=== PATIENT | female | born 1955 | race American Indian/Alaskan Native ===

== ENCOUNTER 2016-10-29 11:21 | Emergency (ER) | payer MEDICAID ==
[2016-10-29 11:39] VITALS: BP 108/67
[2016-10-29] MEDS ORDERED: DELTASONE PO ONE (13:17)
[2016-10-29] MEDS ORDERED: PERCOCET 5/325 PO ONE (13:17)
--- NOTE | 2016-10-29 14:54 | XRay Report ---
FINAL REPORT EXAM: XR HIP 2-3V RT HISTORY: Fall with right hip pain TECHNIQUE: AP pelvis radiograph. Frog-leg radiograph of the right hip. PRIORS: None. FINDINGS: No fracture. No dislocation. Normal mineralization. No soft tissue abnormality. Mild degenerative changes of the hip joints are seen. IMPRESSION: No acute pelvis or right hip abnormality.
--- NOTE | 2016-10-29 15:07 | XRay Report ---
FINAL REPORT EXAM: XR SPINE LUMBOSACRAL 2-3V HISTORY: fall with back pain and radiculopathy TECHNIQUE: AP, lateral and lumbosacral spot views of the lumbar spine. PRIORS: None. FINDINGS: There are five lumbar type vertebral bodies. Normal alignment. No compression fracture. The disc spaces are maintained. Mild anterior osteophyte formations are seen within the lumbar spine. Mild facet arthropathy is seen in the lumbar spine. The paravertebral soft tissues are normal. An ovoid calcification projects in the left paraspinous region at the L3-4 level which may represent a vascular calcification versus nonspecific psoas muscle calcification. IMPRESSION: 1. No acute lumbar spine abnormality. 2. Mild degenerative spondylosis and facet arthropathy of the lumbar spine.
[2016-10-29] MEDS ORDERED: PERCOCET 5/325 ONE (15:32)
--- NOTE | 2016-10-29 15:52 | Emergency Department Report ---
Entered by TATIANA GRAHAM, acting as scribe for BRETT SPRING PA. ED Back Pain/Injury HPI - General Chief Complaint: Back Pain/Injury Stated Complaint: R/SIDE/HIP/BACK/LEG PAIN/FALL Time Seen by Provider: 10/29/16 11:52 Source: patient, family Mode of arrival: Ambulatory Limitations: Physical Limitation (patient ambulatory with a cane) - History of Present Illness Initial Comments: 61 y/o female with a PMHx asthma, GERD, COPD, NC, HTN, high cholesterol, and chronic back/hip pain presents to the ED c/o low back pain that began 2 weeks ago. Patient states she fell 2 weeks ago on her right side of body. Notes the low back pain radiates to her right leg. Rates pain a 10/10 in severity, which she describes as aching in quality. Associated symptom include right hip pain, but she denies abdominal pain, nausea, vomiting, numbness, tingling, urgency, frequency, dysuria, and incontinence. Notes Hx of similar symptoms in the past, but states this episode is worse. Took Ibuprofen with no relief. She is ambulatory with using a cane. Patient is currently on 2L O2 and reports daily tobacco use. NKDA. MADRIGAL Complaint: back pain (low back pain), fall (2 weeks ago) Onset/Timin -: week(s) Similar Symptoms Previously: Yes (Hx chronic back/hip pain) Place: home Radiation: right leg Severity: severe Severity scale (0 -10): 10 Quality: aching Consistency: constant Improves With: immobilization Worsens With: movement, walking Context: fall (patient fell on right side 2 weeks ago) Associated Symptoms: denies other symptoms, difficulty walking (due to chronic back and hip pain. She walks with a cane). denies: confusion, weakness, chest pain, numbness, difficulty urinating, incontinence, fever/chills, constipation, headaches, abdominal pain, loss of appetite, malaise, nausea/vomiting, rash, seizure, shortness of breath, syncope, other (tingling, but reports right hip pain) Treatments Prior to Arrival: NSAIDS (Ibuprofen) - Related Data Home Medications Medication Instructions Recorded Confirmed Last Taken Albuterol Sulfate [Albuterol 0.63% 0.63 inhalation INHALATION Q4-6H 08/26/1310/2402/14/15 NEBS] Simvastatin 20 mg PO DAILY 08/26/13 02/14/15 02/14/15 Fluticasone [Flonase] 1 spray NS QDAY 09/22/14 02/14/15 02/14/15 Ibuprofen [Motrin 800 MG tab] 800 mg PO Q6H 09/22/14 02/14/15 02/14/15 Lisinopril/Hydrochlorothiazide 1 tab PO QDAY 09/22/14 02/14/15 02/14/15 [Zestoretic 10-12.5 mg] Previous Rx's Medication Instructions Recorded Last Taken Type ALBUTEROL Inhaler [ProAir HFA 2 puff IH QID PRN #1 inhalation 02/18/15 Unknown Rx Inhaler] Albuterol *Only Ed* [Proventil 2.5 mg IH Q4HRT PRN #1 box 02/18/15 Unknown Rx 0.5% NEBS] Amoxicillin/K Clav Tab [Augmentin 1 tab PO Q12HR #10 tab 02/18/15 Unknown Rx 875MG TAB] HYDROcodone/APAP 5-325 [Lincoln 1 each PO Q6H PRN #20 tablet 02/18/15 Unknown Rx 5-325 mg TAB] Ipratropium/Albuterol Sulfate 1 ampul IH TIDRT PRN #1 box 02/18/15 Unknown Rx [Duoneb 0.5 mg-3 mg/3 ml Soln] predniSONE [Deltasone] 50 mg PO QDAY #7 tab 02/18/15 Unknown Rx Acetaminophen/Codeine [Tylenol #3] 1 tab PO Q6H PRN #20 tab 05/21/15 Unknown Rx Cyclobenzaprine [Flexeril] 10 mg PO TID PRN #20 tablet 05/21/15 Unknown Rx HYDROcodone/APAP 5-325 [Lincoln 1 each PO Q6HR PRN #16 tablet 02/02/16 Unknown Rx 5/325] methOCARBAMOL [Robaxin TAB] 500 mg PO DAILY PRN #12 tablet 10/29/16 Unknown Rx traMADol [Ultram] 50 mg PO Q6HR PRN #20 tablet 10/29/16 Unknown Rx Allergies Allergy/AdvReac Type Severity Reaction Status Date / Time No Known Allergies Allergy Verified 10/29/16 11:36 ED Review of Systems Comment: All other systems reviewed and negative Constitutional: no symptoms reported. denies: chills, fever, weakness, other ( tingling) Respiratory: no symptoms reported Cardiovascular: denies: chest pain, palpitations, edema, syncope Endocrine: no symptoms reported Gastrointestinal: denies: abdominal pain, nausea, vomiting Genitourinary: denies: urgency, dysuria, frequency, other (incontinence) Musculoskeletal: back pain (low back pain that radiates to right leg), arthralgia. denies: joint swelling Skin: denies: rash Neurological: abnormal gait (chronic). denies: headache, weakness, numbness, paresthesias, confusion, vertigo ED Past Medical Hx - Past Medical History Previous Medical History?: Yes Hx Hypertension: Yes Hx CVA: No Hx Heart Attack/AMI: Yes Hx Congestive Heart Failure: No Hx Diabetes: No Hx Deep Vein Thrombosis: No Hx Pulmonary Embolism: No Hx GERD: Yes Hx Liver Disease: No Hx Renal Disease: No Hx Sickle Cell Disease: No Hx Arthritis: No Hx Headaches / Migraines: No Hx Seizures: No Hx Kidney Stones: No Hx Psychiatric Treatment: No Hx Asthma: Yes Hx COPD: Yes (2LNC @ home.) Hx Tuberculosis: No Hx HIV: No Additional medical history: High cholestrol. Chronic back pain/hip pain. - Surgical History Past Surgical History?: Yes Hx Coronary Stent: No Hx Pacemaker: No Hx Internal Defibrillator: No Additional Surgical History: hysterectomy. LEFT ANKLE - Family History Family history: CAD/NC, diabetes, hypertension - Social History Smoking Status: Current Every Day Smoker Substance Use Type: Alcohol - Medications Home Medications: Home Medications Medication Instructions Recorded Confirmed Last Taken Type Albuterol Sulfate [Albuterol 0.63% 0.63 inhalation INHALATION Q4-6H 08/26/1310/2402/14/15 History NEBS] Simvastatin 20 mg PO DAILY 08/26/13 02/14/15 02/14/15 History Fluticasone [Flonase] 1 spray NS QDAY 09/22/14 02/14/15 02/14/15 History Ibuprofen [Motrin 800 MG tab] 800 mg PO Q6H 09/22/14 02/14/15 02/14/15 History Lisinopril/Hydrochlorothiazide 1 tab PO QDAY 09/22/14 02/14/15 02/14/15 History [Zestoretic 10-12.5 mg] ALBUTEROL Inhaler [ProAir HFA 2 puff IH QID PRN #1 inhalation 02/18/15 Unknown Rx Inhaler] Albuterol *Only Ed* [Proventil 2.5 mg IH Q4HRT PRN #1 box 02/18/15 Unknown Rx 0.5% NEBS] Amoxicillin/K Clav Tab [Augmentin 1 tab PO Q12HR #10 tab 02/18/15 Unknown Rx 875MG TAB] HYDROcodone/APAP 5-325 [[place]incoln 1 each PO Q6H PRN #20 tablet 02/18/15 Unknown Rx 5-325 mg TAB] Ipratropium/Albuterol Sulfate 1 ampul IH TIDRT PRN #1 box 02/18/15 Unknown Rx [Duoneb 0.5 mg-3 mg/3 ml Soln] predniSONE [Deltasone] 50 mg PO QDAY #7 tab 02/18/15 Unknown Rx Acetaminophen/Codeine [Tylenol #3] 1 tab PO Q6H PRN #20 tab 05/21/15 Unknown Rx Cyclobenzaprine [Flexeril] 10 mg PO TID PRN #20 tablet 05/21/15 Unknown Rx HYDROcodone/APAP 5-325 [Lincoln 1 each PO Q6HR PRN #16 tablet 02/02/16 Unknown Rx 5/325] methOCARBAMOL [Robaxin TAB] 500 mg PO DAILY PRN #12 tablet 10/29/16 Unknown Rx traMADol [Ultram] 50 mg PO Q6HR PRN #20 tablet 10/29/16 Unknown Rx ED Physical Exam - General Limitations: No Limitations General appearance: alert, in no apparent distress - Head Head exam: Present: atraumatic, normocephalic, normal inspection - Eye Eye exam: Present: normal appearance, PERRL, EOMI Pupils: Present: normal accommodation - ENT ENT exam: Present: normal exam, normal orophraynx, mucous membranes moist, normal external ear exam - Neck Neck exam: Present: normal inspection, full ROM. Absent: tenderness, meningismus, lymphadenopathy - Respiratory Respiratory exam: Present: decreased breath sounds (diminished lung sounds throughout), other (patient is on 2L O2). Absent: normal lung sounds bilaterally (diminished lung sounds throughout is present), respiratory distress , wheezes, rales, rhonchi, stridor, chest wall tenderness, accessory muscle use , prolonged expiratory - Cardiovascular Cardiovascular Exam: Present: regular rate, normal rhythm, normal heart sounds - GI/Abdominal GI/Abdominal exam: Present: soft, normal bowel sounds. Absent: distended, tenderness, guarding, rebound, rigid - Extremities Exam Extremities exam: Present: normal inspection, normal capillary refill, other ( left hip normal range of motion.). Absent: full ROM (patient with full range of motion to extremities but painful to move right lower extremity at hip. Reports pain with abduction and adduction to right hip.), tenderness, pedal edema, joint swelling - Expanded Lower Extremity Exam Right Hip exam: Present: normal inspection, pelvic stability. Absent: full ROM ( patient Pt with full range of motion to extremities but painful to move right lower extremity at hip. Reports pain with abduction and adduction to right hip. ), tenderness, swelling, abrasion, laceration, ecchymosis, deformity, crepidus, dislocation, erythema, external rotation, internal rotation, shortening Upper Leg exam: Present: normal inspection, full ROM. Absent: tenderness, swelling, abrasion, laceration, ecchymosis, deformity, crepidus, dislocation, erythema Knee exam: Present: normal inspection, full ROM, full knee extension. Absent: tenderness, swelling, abrasion, laceration, ecchymosis, deformity, crepidus, dislocation, erythema, effusion, pain w/ pronation/supination, posterior draw sign Lower Leg exam: Present: normal inspection, full ROM. Absent: tenderness, swelling, abrasion, laceration, ecchymosis, deformity, crepidus, dislocation, erythema, palpable cord, Aracelis's sign Ankle exam: Present: normal inspection, full ROM. Absent: tenderness, swelling , abrasion, laceration, ecchymosis, deformity, crepidus, dislocation, erythema Foot/Toe exam: Present: normal inspection, full ROM. Absent: tenderness, swelling, abrasion, laceration, ecchymosis, deformity, crepidus, dislocation, erythema, amputation, puncture wound, foreign body, calcaneal tenderness, tenderness at base of 5th metatarsal, nail avulsion, subungual hematoma Neuro vascular tendon exam: Present: no vascular compromise, motor deficit ( patient with diminished range of motion to right lower extremity due to arthritis and she uses a cane.). Absent: pulse deficit, abnormal cap refill, sensory deficit, tendon deficit, extremity cold to touch, pallor, abnormal 2- point discrimination, decreased fine/light touch, foot drop, peroneal nerve deficit, significant pain with passive ROM of distal joint Gait: Positive: observed and limited by pain - Back Exam Back exam: Present: full ROM, tenderness (right lumbar tenderness). Absent: vertebral tenderness - Expanded Back Exam Expanded Back exam: Positive Straight Leg Raise: Right, Negative Straight Leg Raising: Left - Neurological Exam Neurological exam: Present: alert, oriented X3, abnormal gait (abnormal gait due to chronic back and hip pain. She came), motor sensory deficit (no sensory deficit but she has decreased movement to her right lower extremity and this is chronic), reflexes normal, other (chronic unsteady gait, patient is ambulatory with a cane) - Expanded Neurological Exam Expanded Neurological exam: Absent: innattentive, memory loss-remote event, memory loss- recent event, ataxia, receptive aphasia, expressive aphasia, total aphasia, tremor, protecting the airway Patient oriented to: Present: person, place, time Speech: Present: fluid speech Cranial nerves: EOM's Intact: Normal, Gag Reflex: Normal, Tongue Deviation: Normal, Nystagmus: Normal, Facial Sensation: Normal Cerebellar function: Romberg: Normal Upper motor neuron: Pronator Drift: Normal, Sensory Extinction: Normal Sensory exam: Upper Extremity Light Touch: Normal, Upper Extremity Temperature: Normal, UE 2 Point Discrimination: Normal, Lower Extremity Light Touch: Normal, Lower Extremity Temperature: Normal, LE 2 Point Discrimination: Normal Motor strength exam: RUE: 5, LUE: 5, RLE: 4, LLE: 5 DTR: bicep (R): 2+, bicep (L): 2+, tricep (R): 2+, tricep (L): 2+, knee (R): 2+ , knee (L): 2+, ankle (R): 2+, ankle (L): 2+ Best Eye Response (Boyd): (4) open spontaneously Best Motor Response (Boyd): (6) obeys commands Best Verbal Response (Miguel): (5) oriented Miguel Total: 15 - Psychiatric Psychiatric exam: Present: normal affect, normal mood - Skin Skin exam: Present: warm, dry, intact, normal color. Absent: rash ED Course Vital Signs 10/29/16 11:36 Temperature 98.5 F Pulse Rate 66 Respiratory 22 Rate Blood Pressure 108/67 O2 Sat by Pulse 97 Oximetry - Reevaluation(s) Reevaluation #1: 10/29/16 15:40 given Deltasone 60 mg and Percocet 5/325 2 tablets emergency room ED Medical Decision Making - Radiology Data Radiology results: report reviewed - Medical Decision Making ED course: Patient status post fall 2 weeks ago with complaints of back pain on the right side of her lower back radiating down to her right hip. Patient with chronic back pain and chronic hip pain. She ambulates with a cane. I discussed with patient that her x-ray of her right hip and lumbar spine did not show any acute findings for fracture or dislocation. I Discussed with her that she has degenerative changes which is arthritis arthritis. She was given Percocet 5/325 2 tablets emergency room along with . Deltasone 60 mg by mouth. She does have a primary care physician and she had seen orthopedic doctor in the past so I told her to follow up with orthopedic doctor and if she does not have one at present Iwill refer her to orthopedic doctor. Patient was understanding of discharge instruction and discharged home with prescription for Ultram and Robaxin ED Disposition Clinical Impression: Acute exacerbation of chronic low back pain, Arthralgia of right hip, Fall from ground level, DDD (degenerative disc disease), lumbosacral Disposition: DISCHARGED TO HOME OR SELFCARE Is pt being admited?: No Does the pt Need Aspirin: No Condition: Stable Instructions: Arthralgia (ED), Chronic Back Pain (ED), Fall Prevention for Older Adults (ED) Additional Instructions: Please rest for 72 hours Follow up with orthopedic doctor and her primary care physician as discussed Prescriptions: methOCARBAMOL [Robaxin TAB] 500 mg PO DAILY PRN #12 tablet PRN Reason: Pain traMADol [Ultram] 50 mg PO Q6HR PRN #20 tablet PRN Reason: Pain Referrals: Dr Hackett, ORTHOPEDIC DOCTOR [Other] - 2-3 Days (Office is open Monday to Monday 8:30 AM to 5 PM) PRIMARY CARE, [Primary Care Provider] - 2-3 Days Forms: Work/School Release Form(ED) This documentation as recorded by the scribe,SANTOS,TATIANA,accurately reflects the service I personally performed and the decisions made by me,BRETT SPRING PA.
== END 2016-10-29 16:00 | disposition home or self-care (01) ==
LOC: ED 11:21
DX: M51.37 Other intervertebral disc degeneration, lumbosacral region (principal); I10 Essential (primary) hypertension; I25.2 Old myocardial infarction; K21.9 Gastro-esophageal reflux disease without esophagitis; J45.909 Unspecified asthma, uncomplicated; J44.9 Chronic obstructive pulmonary disease, unspecified; F17.200 Nicotine dependence, unspecified, uncomplicated; W18.30XA Fall on same level, unspecified, initial encounter; Y93.9 Activity, unspecified; Y92.9 Unspecified place or not applicable; Y99.9 Unspecified external cause status
CPT/HCPCS: 72100; 73502; 99283; J7512

== ENCOUNTER 2017-03-28 12:22 | Emergency (ER) | payer MEDICAID ==
--- NOTE | 2017-03-28 15:08 | Emergency Department Report ---
ED Upper Extremity Inj HPI - General Chief Complaint: Extremity Injury, Upper Stated Complaint: ARM PAIN Time Seen by Provider: 03/28/17 14:54 Source: patient Mode of arrival: Ambulatory Limitations: No Limitations - History of Present Illness Initial Comments: This is a 61-year-old female nontoxic, well nourished in appearance, no acute signs of distress presents to the ED complaining of upper back pain, right shoulder pain radiates towards right upper extremity 3 weeks. Patient denies any trauma to the region. She was followed up with her pain management doctor received Percocet with minimal to no relief. Patient was instructed to follow- up with a primary care doctor to obtain an x-ray but she stated she directed to time restraint. She denies any trauma to the region, numbness, tingling, fever , chills, joint swelling, joint redness, stiff neck, headache, chest pain, shortness of breath, nausea vomiting. Patient denies any allergies. Past medical history includes asthma, COPD, [place], hypertension. MD Complaint: Injury to:: right, shoulder, arm -: Gradual, week(s) (3) Other Extremity Injury: Shoulder: Right Other Injuries: none Severity scale (0 -10): 7 Improves With: none Worsens With: none Associated Symptoms: denies other symptoms. denies: weakness, numbness, neck pain, suspects foreign body, nausea/vomiting, heard/felt popping sensat - Related Data Home Medications Medication Instructions Recorded Confirmed Last Taken Albuterol Sulfate [Albuterol 0.63% 0.63 inhalation INHALATION Q4-6H 08/26/1310/2402/14/15 NEBS] Simvastatin 20 mg PO DAILY 08/26/13 02/14/15 02/14/15 Fluticasone [Flonase] 1 spray NS QDAY 09/22/14 02/14/15 02/14/15 Ibuprofen [Motrin 800 MG tab] 800 mg PO Q6H 09/22/14 02/14/15 02/14/15 Lisinopril/Hydrochlorothiazide 1 tab PO QDAY 09/22/14 02/14/15 02/14/15 [Zestoretic 10-12.5 mg] Previous Rx's Medication Instructions Recorded Last Taken Type ALBUTEROL Inhaler [ProAir HFA 2 puff IH QID PRN #1 inhalation 02/18/15 Unknown Rx Inhaler] Albuterol *Only Ed* [Proventil 2.5 mg IH Q4HRT PRN #1 box 02/18/15 Unknown Rx 0.5% NEBS] Amoxicillin/K Clav Tab [Augmentin 1 tab PO Q12HR #10 tab 02/18/15 Unknown Rx 875MG TAB] HYDROcodone/APAP 5-325 [[place] 1 each PO Q6H PRN #20 tablet 02/18/15 Unknown Rx 5-325 mg TAB] Ipratropium/Albuterol Sulfate 1 ampul IH TIDRT PRN #1 box 02/18/15 Unknown Rx [DUONEB *Not for PRN Use*] predniSONE [Deltasone] 50 mg PO QDAY #7 tab 02/18/15 Unknown Rx Acetaminophen/Codeine [Tylenol #3] 1 tab PO Q6H PRN #20 tab 05/21/15 Unknown Rx Cyclobenzaprine [Flexeril] 10 mg PO TID PRN #20 tablet 05/21/15 Unknown Rx HYDROcodone/APAP 5-325 [[place] 1 each PO Q6HR PRN #16 tablet 02/02/16 Unknown Rx 5/325] methOCARBAMOL [Robaxin TAB] 500 mg PO DAILY PRN #12 tablet 10/29/16 Unknown Rx traMADol [Ultram] 50 mg PO Q6HR PRN #20 tablet 10/29/16 Unknown Rx Cyclobenzaprine HCl [Flexeril 5 MG 5 mg PO BID #10 tab 03/28/17 Unknown Rx TAB] Allergies Allergy/AdvReac Type Severity Reaction Status Date / Time No Known Allergies Allergy Verified 03/28/17 12:26 ED Review of Systems ROS: Stated complaint: ARM PAIN Other details as noted in HPI Constitutional: denies: chills, fever Eyes: denies: eye pain, eye discharge, vision change ENT: denies: ear pain, throat pain Respiratory: denies: cough, shortness of breath, wheezing Cardiovascular: denies: chest pain, palpitations Endocrine: no symptoms reported Gastrointestinal: denies: abdominal pain, nausea, diarrhea Genitourinary: denies: urgency, dysuria, discharge Musculoskeletal: denies: back pain, joint swelling, arthralgia Skin: denies: rash, lesions Neurological: denies: headache, weakness, paresthesias Psychiatric: denies: anxiety, depression Hematological/Lymphatic: denies: easy bleeding, easy bruising ED Past Medical Hx - Past Medical History Hx Hypertension: Yes Hx CVA: No Hx Heart Attack/AMI: Yes Hx Congestive Heart Failure: No Hx Diabetes: No Hx Deep Vein Thrombosis: No Hx Pulmonary Embolism: No Hx GERD: Yes Hx Liver Disease: No Hx Renal Disease: No Hx Sickle Cell Disease: No Hx Arthritis: No Hx Headaches / Migraines: No Hx Seizures: No Hx Kidney Stones: No Hx Psychiatric Treatment: No Hx Asthma: Yes Hx COPD: Yes (2LNC @ home.) Hx Tuberculosis: No Hx HIV: No Additional medical history: High cholestrol. Chronic back pain/hip pain. - Surgical History Hx Coronary Stent: No Hx Pacemaker: No Hx Internal Defibrillator: No Additional Surgical History: hysterectomy. LEFT ANKLE - Social History Smoking Status: Current Some Day Smoker Substance Use Type: None, Alcohol - Medications Home Medications: Home Medications Medication Instructions Recorded Confirmed Last Taken Type Albuterol Sulfate [Albuterol 0.63% 0.63 inhalation INHALATION Q4-6H 08/26/1310/2402/14/15 History NEBS] Simvastatin 20 mg PO DAILY 08/26/13 02/14/15 02/14/15 History Fluticasone [Flonase] 1 spray NS QDAY 09/22/14 02/14/15 02/14/15 History Ibuprofen [Motrin 800 MG tab] 800 mg PO Q6H 09/22/14 02/14/15 02/14/15 History Lisinopril/Hydrochlorothiazide 1 tab PO QDAY 09/22/14 02/14/15 02/14/15 History [Zestoretic 10-12.5 mg] ALBUTEROL Inhaler [ProAir HFA 2 puff IH QID PRN #1 inhalation 02/18/15 Unknown Rx Inhaler] Albuterol *Only Ed* [Proventil 2.5 mg IH Q4HRT PRN #1 box 02/18/15 Unknown Rx 0.5% NEBS] Amoxicillin/K Clav Tab [Augmentin 1 tab PO Q12HR #10 tab 02/18/15 Unknown Rx 875MG TAB] HYDROcodone/APAP 5-325 [[place] 1 each PO Q6H PRN #20 tablet 02/18/15 Unknown Rx 5-325 mg TAB] Ipratropium/Albuterol Sulfate 1 ampul IH TIDRT PRN #1 box 02/18/15 Unknown Rx [DUONEB *Not for PRN Use*] predniSONE [Deltasone] 50 mg PO QDAY #7 tab 02/18/15 Unknown Rx Acetaminophen/Codeine [Tylenol #3] 1 tab PO Q6H PRN #20 tab 05/21/15 Unknown Rx Cyclobenzaprine [Flexeril] 10 mg PO TID PRN #20 tablet 05/21/15 Unknown Rx HYDROcodone/APAP 5-325 [[place] 1 each PO Q6HR PRN #16 tablet 02/02/16 Unknown Rx 5/325] methOCARBAMOL [Robaxin TAB] 500 mg PO DAILY PRN #12 tablet 10/29/16 Unknown Rx traMADol [Ultram] 50 mg PO Q6HR PRN #20 tablet 10/29/16 Unknown Rx Cyclobenzaprine HCl [Flexeril 5 MG 5 mg PO BID #10 tab 03/28/17 Unknown Rx TAB] ED Physical Exam - General Limitations: No Limitations General appearance: alert, in no apparent distress - Head Head exam: Present: atraumatic, normocephalic, normal inspection - Eye Eye exam: Present: normal appearance, PERRL, EOMI. Absent: scleral icterus, conjunctival injection, nystagmus, periorbital swelling, periorbital tenderness Pupils: Present: normal accommodation - ENT ENT exam: Present: normal exam, normal orophraynx, mucous membranes moist, TM's normal bilaterally, normal external ear exam - Neck Neck exam: Present: normal inspection, full ROM. Absent: tenderness, meningismus, lymphadenopathy, thyromegaly - Respiratory Respiratory exam: Present: normal lung sounds bilaterally. Absent: respiratory distress, wheezes, rales, rhonchi, stridor, chest wall tenderness, accessory muscle use, decreased breath sounds, prolonged expiratory - Cardiovascular Cardiovascular Exam: Present: regular rate, normal rhythm, normal heart sounds. Absent: irregular rhythm, systolic murmur, diastolic murmur, rubs, gallop - GI/Abdominal GI/Abdominal exam: Present: soft, normal bowel sounds. Absent: distended, tenderness, guarding, rebound, rigid, diminished bowel sounds - Rectal Rectal exam: Present: deferred - Extremities Exam Extremities exam: Present: normal inspection, full ROM, normal capillary refill. Absent: tenderness, pedal edema, joint swelling, calf tenderness - Expanded Upper Extremity Exam Right General: Present: normal inspection Shoulder Exam: Present: normal inspection, full ROM, tenderness (deltoid musclar region). Absent: swelling, abrasion, laceration, ecchymosis, deformity , crepidus, erythema, tenderness over AC joint Upper Arm exam: Present: normal inspection, full ROM. Absent: tenderness, swelling, abrasion, laceration, ecchymosis, deformity, crepidus, dislocation, erythema Elbow exam: Present: normal inspection, full ROM. Absent: tenderness, swelling , abrasion, laceration, ecchymosis, deformity, crepidus, dislocation, erythema, effusion, pain w/ pronation/supination, tenderness over radial head Forearm Wrist exam: Present: normal inspection, full ROM. Absent: tenderness, swelling, abrasion, laceration, ecchymosis, deformity, crepidus, dislocation, erythema, tenderness over anatomical snuff box, pain with axial thumb loading Hand Wrist exam: Present: normal inspection, full ROM. Absent: tenderness, swelling, abrasion, laceration, ecchymosis, deformity, crepidus, dislocation, erythema, amputation, nail avulsion, subungual hematoma Neuro motor exam: Present: wrist extension intact, thumb opposition intact, thumb IP flexion intact, thumb adduction intact, fingers 2-5 abduction intact Neurosensory exam: Present: 2-point discrimination, radial nerve intact, ulnar nerve intact, median nerve intact Vascular: Present: vascular compromise, normal capillary refill, radial pulse, brachial pulse, ulnar pulse - Back Exam Back exam: Present: normal inspection, full ROM, paraspinal tenderness (cerival region). Absent: tenderness, CVA tenderness (R), CVA tenderness (L), muscle spasm, vertebral tenderness, rash noted - Neurological Exam Neurological exam: Present: alert, oriented X3, CN II-XII intact, normal gait, reflexes normal - Psychiatric Psychiatric exam: Present: normal affect, normal mood - Skin Skin exam: Present: warm, dry, intact, normal color. Absent: rash ED Course Vital Signs 03/28/17 12:26 Temperature 98.6 F Pulse Rate 93 H Respiratory 20 Rate Blood Pressure 134/82 O2 Sat by Pulse 94 Oximetry - Reevaluation(s) Reevaluation #1: 03/28/17 15:10 Patient is speaking in full sentences with no signs of distress noted. ED Medical Decision Making - Medical Decision Making 61-year-old female that presents with cervical radiculopathy versus muscle strain versus rotator cuff injury. Patient was developed by me patient is stable. X-ray of cervical spine and right shoulder has been obtained and the radiologist with negative findings of any abnormalities. Patient notified her x -ray results with no further question about the patient. Patient received Toradol 30 mg IM in the ED which patient stated his symptoms have subsided. There is no joint swelling, cellulitis, or joint redness. Patient received a shoulder immobilizer. Neurovascular intact. Patient was followed by Dr. Hackett or another orthopedic doctor in 3-5 days or if symptoms worsen to continue return to emergency room as soon as possible. Patient is hemodynamically stable with stable vital signs. Patient states she is feeling better. At time time of discharge, the patient does not seem toxic or ill in appearance. No acute signs of distress noted. Patient agrees to discharge treatment plan of care. No further questions noted by the patient. Critical care attestation.: If time is entered above; I have spent that time in minutes in the direct care of this critically ill patient, excluding procedure time. ED Disposition Clinical Impression: Cervical radiculopathy Right shoulder pain Qualifiers: Chronicity: unspecified Qualified Code(s): M25.511 - Pain in right shoulder Disposition: DC-01 TO HOME OR SELFCARE Is pt being admited?: No Does the pt Need Aspirin: No Condition: Stable Instructions: Cyclobenzaprine (By mouth), Rotator Cuff Injury (ED), Shoulder Sprain (ED) Additional Instructions: Follow-up with Dr. Hackett or another orthopedic doctor in 3-5 days for possible MRI of the region or if symptoms worsen or continue return to emergency room as soon as possible. Take Flexeril as prescribed. Do not operate heavy machinery while taking Flexeril due to sedation Prescriptions: Cyclobenzaprine HCl [Flexeril 5 MG TAB] 5 mg PO BID #10 tab Referrals: CHELSEA RHODES [Other] - 3-5 Days BETINA HACKETT MD [Staff Physician] - 3-5 Days [facility] [Outside] - 3-[address] [facility] [Outside] - 3-5 Days
[2017-03-28] MEDS: TORADOL IM ONE (15:45)
--- NOTE | 2017-03-28 15:47 | XRay Report ---
RIGHT SHOULDER: History: Shoulder pain. Routine views demonstrate normal bony and soft tissue structures with normal joint alignment of the shoulder. IMPRESSION: Normal study.
--- NOTE | 2017-03-28 15:50 | XRay Report ---
AP lateral of the cervical spine. History: Cervical tenderness after trauma. Findings: There is no evidence of fracture or subluxation. The vertebral body heights are well-maintained. Alignment is normal. Facet joints appear normal. The odontoid is intact. Impression: No significant findings.
[2017-03-28 16:45] VITALS: BP 134/80
== END 2017-03-28 16:43 | disposition home or self-care (01) ==
LOC: ED 12:22
DX: M25.511 Pain in right shoulder (principal); M54.12 Radiculopathy, cervical region; I10 Essential (primary) hypertension; I25.2 Old myocardial infarction; K21.9 Gastro-esophageal reflux disease without esophagitis; J45.909 Unspecified asthma, uncomplicated; J44.9 Chronic obstructive pulmonary disease, unspecified; E78.5 Hyperlipidemia, unspecified; G89.29 Other chronic pain; F17.200 Nicotine dependence, unspecified, uncomplicated; Z98.890 Other specified postprocedural states
CPT/HCPCS: 29105; 72040; 73030; 96372; 99283; J1885

== ENCOUNTER 2018-01-16 18:39 | Emergency (ER) | payer MEDICAID ==
[2018-01-16 19:03] VITALS: BP 157/78
[2018-01-16 19:32] LABS: Basophils # (Auto) 0.1 K/mm3 (0.0-0.1); Basophils % (Auto) 0.8 % (0.0-1.8); Eosinophils # (Auto) 0.2 K/mm3 (0.0-0.4); Lymphocytes # (Auto) 2.3 K/mm3 (1.2-5.4); Lymphocytes % (Auto) 22.1 % (13.4-35.0); Mean Corpuscular HGB Conc 33 % (30-34); Mean Corpuscular Hemoglobin 27 pg (28-32); Mean Corpuscular Volume 80 fl (79-97); Monocytes # (Auto) 0.6 K/mm3 (0.0-0.8); Monocytes % (Auto) 5.6 % (0.0-7.3); Platelet Count 290 K/mm3 (140-440); Red Blood Count 4.48 M/mm3 (3.65-5.03); Red Cell Distribution Width 16.4 % (13.2-15.2)
[2018-01-16 19:42] LABS: INR 0.87 (0.87-1.13); Partial Thromboplastin Time 24.7 Sec. (24.2-36.6)
[2018-01-16 19:43] LABS: BUN/Creatinine Ratio 28; Blood Urea Nitrogen 17 mg/dL (7-17); Calcium 9.6 mg/dL (8.4-10.2); Hemolysis Index 7
--- NOTE | 2018-01-16 20:04 | Cat Scan Report ---
FINAL REPORT EXAM: CT HEAD/BRAIN WO CON HISTORY: head injury, unknown LOC TECHNIQUE: 2.5 millimeter axial images from the skullbase to the vertex. Comparison: None FINDINGS: There is no evidence of an acute intracranial process, intracranial hemorrhage or mass effect. The ventricles are normal size. The visualized portions of the orbits, paranasal and mastoid sinuses are unremarkable. The bony structures are unremarkable in appearance. There is no evidence of fracture. IMPRESSION: 1. No evidence of an acute intracranial process, intracranial hemorrhage or mass effect. 2. No evidence of fracture.
[2018-01-17] MEDS ORDERED: TORADOL IM ONE (00:10)
[2018-01-17] MEDS ORDERED: TORADOL ONE (00:10)
--- NOTE | 2018-01-17 00:38 | Emergency Department Report ---
ED Fall HPI - General Chief Complaint: Fall Stated Complaint: SLIPPED AND FALL ON SPINE/PAIN Time Seen by Provider: 01/16/18 23:54 Source: patient Mode of arrival: Ambulatory - History of Present Illness Initial Comments: Patient is 62-year-old [place] female states she slipped in the kitchen today landing on her occipital region there is no LOC patient patient was immediately ambulatory after incident however now complains of occipital head pain neckpain 4/10 pain is exacerbated by movement there is no numbness no tingling no nausea vomiting or lightheadedness no chest pain or shortness of breath patient ambulated in the ED today MD Complaint: fall Onset/Timin -: hour(s) Fall From: standing When Fall Occurred: other (12 hrs ) Fall Witnessed: yes, by family Place Fall Occurred: home Loss of Consciousness: none Prolonged Down Time?: no Symptoms Prior to Fall: other (headache ) Location: head Severity: moderate Severity scale (0 -10): 5 Quality: sharp, aching Context: tripped/slipped Associated Symptoms: headache, neck pain. denies: numbness, weakness, chest paint, shortness of breath, abdominal pain, hematuria, unable to walk, lightheaded, vertigo, confusion - Related Data Home Medications Medication Instructions Recorded Confirmed Last Taken Albuterol Sulfate [Albuterol 0.63% 0.63 inhalation INHALATION Q4-6H 08/26/1310/2402/14/15 NEBS] Simvastatin 20 mg PO DAILY 08/26/13 02/14/15 02/14/15 Fluticasone [Flonase] 1 spray NS QDAY 09/22/14 02/14/15 02/14/15 Ibuprofen [Motrin 800 MG tab] 800 mg PO Q6H 09/22/14 02/14/15 02/14/15 Lisinopril/Hydrochlorothiazide 1 tab PO QDAY 09/22/14 02/14/15 02/14/15 [Zestoretic 10-12.5 mg] Previous Rx's Medication Instructions Recorded Last Taken Type ALBUTEROL Inhaler [ProAir HFA 2 puff IH QID PRN #1 inhalation 02/18/15 Unknown Rx Inhaler] Albuterol *Only Ed* [Proventil 2.5 mg IH Q4HRT PRN #1 box 02/18/15 Unknown Rx 0.5% NEBS] Amoxicillin/K Clav Tab [Augmentin 1 tab PO Q12HR #10 tab 02/18/15 Unknown Rx 875MG TAB] HYDROcodone/APAP 5-325 [[place] 1 each PO Q6H PRN #20 tablet 02/18/15 Unknown Rx 5-325 mg TAB] Ipratropium/Albuterol Sulfate 1 ampul IH TIDRT PRN #1 box 02/18/15 Unknown Rx [DUONEB *Not for PRN Use*] predniSONE [Deltasone] 50 mg PO QDAY #7 tab 02/18/15 Unknown Rx Acetaminophen/Codeine [Tylenol #3] 1 tab PO Q6H PRN #20 tab 05/21/15 Unknown Rx Cyclobenzaprine [Flexeril] 10 mg PO TID PRN #20 tablet 05/21/15 Unknown Rx HYDROcodone/APAP 5-325 [[place] 1 each PO Q6HR PRN #16 tablet 02/02/16 Unknown Rx 5/325] methOCARBAMOL [Robaxin TAB] 500 mg PO DAILY PRN #12 tablet 10/29/16 Unknown Rx traMADol [Ultram] 50 mg PO Q6HR PRN #20 tablet 10/29/16 Unknown Rx Cyclobenzaprine HCl [Flexeril 5 MG 5 mg PO BID #10 tab 03/28/17 Unknown Rx TAB] Acetaminophen/Codeine [Tylenol 1 tab PO Q8H PRN #9 tab 01/17/18 Unknown Rx /Codeine # 3 tab] Cyclobenzaprine [Flexeril] 10 mg PO BID PRN #20 tablet 01/17/18 Unknown Rx Menthol/Camphor [[place] 1 applic TP TID PRN #1 tube 01/17/18 Unknown Rx Ointment] Allergies Allergy/AdvReac Type Severity Reaction Status Date / Time No Known Allergies Allergy Verified 03/28/17 12:26 ED Review of Systems ROS: Stated complaint: SLIPPED AND FALL ON SPINE/PAIN Other details as noted in HPI Constitutional: denies: chills, fever Eyes: denies: eye pain, eye discharge, vision change ENT: denies: ear pain, throat pain Respiratory: denies: cough, shortness of breath, wheezing Cardiovascular: denies: chest pain, palpitations Endocrine: no symptoms reported Gastrointestinal: denies: abdominal pain, nausea, diarrhea Genitourinary: denies: urgency, dysuria, discharge Musculoskeletal: myalgia (neck pain and headahe ). denies: back pain, joint swelling, arthralgia Skin: denies: rash, lesions Neurological: denies: headache, weakness, paresthesias Psychiatric: denies: anxiety, depression Hematological/Lymphatic: denies: easy bleeding, easy bruising ED Past Medical Hx - Past Medical History Previous Medical History?: Yes Hx Hypertension: Yes Hx CVA: No Hx Heart Attack/AMI: Yes Hx Congestive Heart Failure: No Hx Diabetes: No Hx Deep Vein Thrombosis: No Hx Pulmonary Embolism: No Hx GERD: Yes Hx Liver Disease: No Hx Renal Disease: No Hx Sickle Cell Disease: No Hx Arthritis: No Hx Headaches / Migraines: No Hx Seizures: No Hx Kidney Stones: No Hx Psychiatric Treatment: No Hx Asthma: Yes Hx COPD: Yes (2LNC @ home.) Hx Tuberculosis: No Hx HIV: No Additional medical history: High cholestrol. Chronic back pain/hip pain. - Surgical History Past Surgical History?: Yes Hx Coronary Stent: No Hx Pacemaker: No Hx Internal Defibrillator: No Additional Surgical History: hysterectomy. LEFT ANKLE - Social History Smoking Status: Light Tobacco Smoker Substance Use Type: Alcohol, Prescribed - Medications Home Medications: Home Medications Medication Instructions Recorded Confirmed Last Taken Type Albuterol Sulfate [Albuterol 0.63% 0.63 inhalation INHALATION Q4-6H 08/26/1310/2402/14/15 History NEBS] Simvastatin 20 mg PO DAILY 08/26/13 02/14/15 02/14/15 History Fluticasone [Flonase] 1 spray NS QDAY 09/22/14 02/14/15 02/14/15 History Ibuprofen [Motrin 800 MG tab] 800 mg PO Q6H 09/22/14 02/14/15 02/14/15 History Lisinopril/Hydrochlorothiazide 1 tab PO QDAY 09/22/14 02/14/15 02/14/15 History [Zestoretic 10-12.5 mg] ALBUTEROL Inhaler [ProAir HFA 2 puff IH QID PRN #1 inhalation 02/18/15 Unknown Rx Inhaler] Albuterol *Only Ed* [Proventil 2.5 mg IH Q4HRT PRN #1 box 02/18/15 Unknown Rx 0.5% NEBS] Amoxicillin/K Clav Tab [Augmentin 1 tab PO Q12HR #10 tab 02/18/15 Unknown Rx 875MG TAB] HYDROcodone/APAP 5-325 [[place] 1 each PO Q6H PRN #20 tablet 02/18/15 Unknown Rx 5-325 mg TAB] Ipratropium/Albuterol Sulfate 1 ampul IH TIDRT PRN #1 box 02/18/15 Unknown Rx [DUONEB *Not for PRN Use*] predniSONE [Deltasone] 50 mg PO QDAY #7 tab 02/18/15 Unknown Rx Acetaminophen/Codeine [Tylenol #3] 1 tab PO Q6H PRN #20 tab 05/21/15 Unknown Rx Cyclobenzaprine [Flexeril] 10 mg PO TID PRN #20 tablet 05/21/15 Unknown Rx HYDROcodone/APAP 5-325 [[place] 1 each PO Q6HR PRN #16 tablet 02/02/16 Unknown Rx 5/325] methOCARBAMOL [Robaxin TAB] 500 mg PO DAILY PRN #12 tablet 10/29/16 Unknown Rx traMADol [Ultram] 50 mg PO Q6HR PRN #20 tablet 10/29/16 Unknown Rx Cyclobenzaprine HCl [Flexeril 5 MG 5 mg PO BID #10 tab 03/28/17 Unknown Rx TAB] Acetaminophen/Codeine [Tylenol 1 tab PO Q8H PRN #9 tab 01/17/18 Unknown Rx /Codeine # 3 tab] Cyclobenzaprine [Flexeril] 10 mg PO BID PRN #20 tablet 01/17/18 Unknown Rx Menthol/Camphor [[place] 1 applic TP TID PRN #1 tube 01/17/18 Unknown Rx Ointment] ED Physical Exam - General Limitations: Physical Limitation General appearance: alert, in no apparent distress - Head Head exam: Present: atraumatic, normocephalic - Eye Eye exam: Present: normal appearance - ENT ENT exam: Present: mucous membranes moist - Neck Neck exam: Present: normal inspection - Respiratory Respiratory exam: Present: normal lung sounds bilaterally. Absent: respiratory distress - Cardiovascular Cardiovascular Exam: Present: regular rate, normal rhythm. Absent: systolic murmur, diastolic murmur, rubs, gallop - GI/Abdominal GI/Abdominal exam: Present: soft, normal bowel sounds. Absent: distended, tenderness, organomegaly, mass, bruit, pulsatile mass, hernia - Rectal Rectal exam: Present: deferred - Extremities Exam Extremities exam: Present: normal inspection, full ROM, normal capillary refill. Absent: tenderness, pedal edema, joint swelling, calf tenderness - Back Exam Back exam: Present: normal inspection, full ROM, tenderness. Absent: CVA tenderness (R), CVA tenderness (L), muscle spasm, paraspinal tenderness, vertebral tenderness, rash noted - Neurological Exam Neurological exam: Present: alert, oriented X3, CN II-XII intact, normal gait, motor sensory deficit, reflexes normal - Expanded Neurological Exam Expanded Patient oriented to: Present: person, place, time Speech: Present: fluid speech Cranial nerves: EOM's Intact: Normal, Gag Reflex: Normal, Tongue Deviation: Normal, Nystagmus: Normal, Facial Sensation: Normal, Facial Palsy with Forehead Movement: Normal, Facial Palsy without Forehead Movement: Normal Cerebellar function: Finger to Nose: Normal, Heel to Barrera: Normal, Romberg: Normal Upper motor neuron: Mark Neglect: Normal, Pronator Drift: Normal, Babinski Sign : Normal, Sensory Extinction: Normal Sensory exam: Upper Extremity Light Touch: Normal, Upper Extremity Pin Prick: Normal, Upper Extremity Temperature: Normal, UE 2 Point Discrimination: Normal, Lower Extremity Light Touch: Normal, Lower Extremity Pin Prick: Normal Motor strength exam: RUE: 5, LUE: 5, RLE: 5 DTR: bicep (R): 2+, bicep (L): 2+, tricep (R): 2+, tricep (L): 2+, knee (R): 2+ , knee (L): 2+, ankle (R): 2+, ankle (L): 2+ Best Eye Response (Miguel): (4) open spontaneously Best Motor Response ([place]): (6) obeys commands Best Verbal Response (Miguel): (5) oriented [place] Total: 15 - Psychiatric Psychiatric exam: Present: normal affect, normal mood - Skin Skin exam: Present: warm, dry, intact, normal color. Absent: rash ED Course Vital Signs 01/16/18 18:59 Temperature 98.5 F Pulse Rate 91 H Respiratory 18 Rate Blood Pressure 157/78 O2 Sat by Pulse 97 Oximetry ED Medical Decision Making - Lab Data Result diagrams: 01/16/18 19:15 01/16/18 19:15 Critical care attestation.: If time is entered above; I have spent that time in minutes in the direct care of this critically ill patient, excluding procedure time. ED Disposition Clinical Impression: Neck muscle strain Qualifiers: Encounter type: initial encounter Qualified Code(s): S16.1XXA - Strain of muscle, fascia and tendon at neck level, initial encounter Fall Qualifiers: Encounter type: initial encounter Qualified Code(s): W19.XXXA - Unspecified fall, initial encounter Disposition: TO HOME OR SELFCARE Is pt being admited?: No Does the pt Need Aspirin: No Condition: Good Instructions: Cervical Spine Strain (ED), Muscle Strain (ED) Prescriptions: Acetaminophen/Codeine [Tylenol /Codeine # 3 tab] 1 tab PO Q8H PRN #9 tab PRN Reason: pain Cyclobenzaprine [Flexeril] 10 mg PO BID PRN #20 tablet PRN Reason: Muscle Spasm Menthol/Camphor [[place] Ointment] 1 applic TP TID PRN #1 tube PRN Reason: pain Referrals: PRIMARY CARE,MD [Primary Care Provider] - 3-5 Days Forms: Work/School Release Form(ED) Time of Disposition: 00:41
== END 2018-01-17 00:45 | disposition home or self-care (01) ==
LOC: ED 18:39
DX: R51 Headache (principal); S16.1XXA Strain of muscle, fascia and tendon at neck level, initial encounter; I10 Essential (primary) hypertension; I21.9 Acute myocardial infarction, unspecified; I25.2 Old myocardial infarction; K21.9 Gastro-esophageal reflux disease without esophagitis; J44.9 Chronic obstructive pulmonary disease, unspecified; G89.29 Other chronic pain; E78.00 Pure hypercholesterolemia, unspecified; Z90.710 Acquired absence of both cervix and uterus; W01.0XXA Fall on same level from slipping, tripping and stumbling without subsequent striking against object, initial encounter; Y93.89 Activity, other specified; Y99.8 Other external cause status; Y92.010 Kitchen of single-family (private) house as the place of occurrence of the external cause
CPT/HCPCS: 36415; 70450; 80048; 84484; 85025; 85610; 85730; 93005; 93010; 96372; 99284; J1885